=== PATIENT | male | born 1955 | race Caucasian/White ===

== ENCOUNTER 2018-03-03 13:51 | Emergency (ER) | payer SELFPAY ==
[~2018-03-03] VITALS: Ht 182.9 cm; Wt 86.2 kg
[2018-03-03 14:17] VITALS: BP 144/98
[2018-03-03] MEDS ORDERED: NKM (14:22)
--- NOTE | 2018-03-03 15:12 | Emergency Room Report ---
History of Present Illness General Chief Complaint: Skin Rash/Abscess Source: Patient Present Illness HPI 63-year-old male presents to the emergency department complaining of 8 out of 10 in severity painful burning lesions to the bilateral hands dorsally as well as the left side of his neck with associated lower lid edema 3 days. Patient reports symptoms of been progressive that initially started on the left thumb. Patient denies lesions on his palms or soles. Pt. denies fevers, chills or swollen tender lymph nodes. Denies lesions/rashes elsewhere on the body. Denies new medications or body washes or creams. Denies swelling of the lips, tongue , throat or airway. Denies wheezing, or shortness of breath. Denies recent travel , recent illness or ill contacts. denies blisters, oral lesions, or sloughing of the skin. He reports recent upper respiratory symptoms over a week ago and states he is taking some [id number] pain medications as well as cough syrups which she states he stopped several days before lesions appeared. denies history of autoimmune diseases or arthritis. Pt. denies pmhx. Allergies: Coded Allergies: No Known Allergies (Unverified , 03/03/18) Patient History Past Medical History: see triage record Past Surgical History: none Pertinent Family History: none Reviewed Nursing Documentation: PMH: Agreed; PSxH: Agreed Nursing Documentation-PMH Past Medical History: No Stated History Review of Systems All Other Systems: negative except mentioned in HPI Physical Exam Vital Signs Date Time Temp Pulse Resp B/P (MAP) Pulse Ox O2 Delivery O2 Flow Rate FiO2 03/03/18 14:17 98.6 89 16 144/98 96 Room Air Sp02 EP Interpretation: reviewed, normal General Appearance: no apparent distress, alert, GCS 15, non-toxic Head: normocephalic, atraumatic Eyes: bilateral eye normal inspection, bilateral eye PERRL, bilateral eye other - bilateral lower lid edema, no corneal or scleral injection. ENT: hearing grossly normal, normal voice, other - no oral lesions Neck: full range of motion Respiratory: chest non-tender, lungs clear, normal breath sounds, no rhonchi, no respiratory distress, no wheezing, speaking full sentences Cardiovascular #1: regular rate, rhythm, no edema Musculoskeletal: back normal, gait/station normal, normal range of motion, non- tender Neurologic: alert, oriented x3, responsive, motor strength/tone normal, sensory intact, speech normal, grossly normal Psychiatric: judgement/insight normal Skin: normal color, warm/dry, well hydrated, rash - erythematous nodules non specific rash to dorsum of hands bilaterally. - negative Niklosky,no palmar lesions or lesions on the soles. no vessicles, or evidence of infection such as crusting, warmth or purulence. no oral lesions. Lymphatic: no adenopathy Medical Decision Making PA Attestation Dr. Logan is my supervising physician whom pt. management has been discussed with. Diagnostic Impression: Primary Impression: Rash and other nonspecific skin eruption Additional Impression: Generalized subcutaneous nodules ER Course 63-year-old male presents to the emergency department complaining of 8 out of 10 in severity painful burning lesions to the bilateral hands dorsally as well as the left side of his neck with associated lower lid edema 3 days. Patient reports symptoms of been progressive that initially started on the left thumb. Patient denies lesions on his palms or soles. Pt. denies fevers, chills or swollen tender lymph nodes. Denies lesions/rashes elsewhere on the body. Denies new medications or body washes or creams. Denies swelling of the lips, tongue , throat or airway. Denies wheezing, or shortness of breath. Denies recent travel , recent illness or ill contacts. denies blisters, oral lesions, or sloughing of the skin. He reports recent upper respiratory symptoms over a week ago and states he is taking some hjbg-[id number]-ffvzbzi pain medications as well as cough syrups which she states he stopped several days before lesions appeared. denies history of autoimmune diseases or arthritis. Pt. denies pmhx. Denies CP. Ddx considered but are not limited to cellulitis, scabies, shingles, varicella, dermatitis, urticaria, eczema, tinea, viral exanthem, endocarditis skin manifestations, SJS, rheumatic exanthem just to name a few. Vital signs: are WNL, pt. is afebrile H&PE are most consistent with non specific rash to dorsum of hands bilaterally. - negative Niklosky,no palmar lesions or lesions on the soles. no vessicles, or evidence of infection such as crusting, warmth or purulence. no oral lesions. No evidence to suggest impending airway compromise or anaphylaxis. ORDERS: none required at this time, the diagnosis is clinical ED INTERVENTIONS: None required at this time. DISCHARGE: At this time pt. is stable for d/c to home. Will provide printed patient care instructions, and any necessary prescriptions. Care plan and follow up instructions have been discussed with the patient prior to discharge. Last Vital Signs Date Time Temp Pulse Resp B/P (MAP) Pulse Ox O2 Delivery O2 Flow Rate FiO2 03/03/18 14:17 98.6 89 16 144/98 96 Room Air Disposition: HOME, SELF-CARE Condition: Stable Scripts Hydrocortisone (Hydrocortisone Cream 2.5%) Y Cream.appl 1 APPLIC TP BID, #22 GM Prov: Deyanira Kee 03/03/18 Acetaminophen* (TYLENOL EXTRA STRENGTH*) 500 Mg Tablet 500 MG ORAL Q6H, #20 TAB 0 Refills Prov: Deyanira Kee 03/03/18 Methylprednisolone (Methylprednisolone*) 4MG Dspk 4 MG ORAL DIRECTED for 6 Days, #21 EA 0 Refills Day 1: Two tablets before breakfast, one after lunch, one after dinner, and two at bedtime. If started late in the day, take all six tablets at once or divide into two or three doses, unless otherwise directed by prescriber. Day 2: One tablet before breakfast, one after lunch, one after dinner, and two at bedtime Day 3: One tablet before breakfast, one after lunch, one after dinner, and one at bedtime Day 4: One tablet before breakfast, one after lunch, and one at bedtime Day 5: One tablet before breakfast and one at bedtime Day 6: One tablet before breakfast Prov: Deyanira Kee 03/03/18 Patient Instructions: Rash Additional Instructions: Take medications as directed. Follow up with a Primary Care Provider in 3-5 days for DERMATOLOGY REFERRAL , even if your symptoms have resolved. --Please review list of primary care clinics, if you do not already have a primary care provider Return sooner to ED if new symptoms occur, or current symptoms become worse. - Please note that this Emergency Department Report was dictated using [employer] technology software, occasionally this can lead to erroneous entry secondary to interpretation by the dictation equipment. Deyanira Kee Mar 03, 2018 15:12
[2018-03-03] MEDS ORDERED: MEDROL DOSEPAK4 MG ORAL (15:13)
[2018-03-03] MEDS ORDERED: TYLENOL EXTRA500 MG ORAL (15:13)
[2018-03-03] MEDS ORDERED: HYDROCORTISONE30 G2 TP (15:13)
== END 2018-03-03 15:23 | disposition home or self-care (01) ==
LOC: MERGE 15:12 → EMR 15:12
DX: R21 Rash and other nonspecific skin eruption (principal); R22.9 Localized swelling, mass and lump, unspecified
CPT/HCPCS: 99282